=== PATIENT | male | born 1940 | race Caucasian/White ===

== ENCOUNTER → 2017-01-18 | Outpatient (CLI) | payer MEDICARE ==
[~2017-01-18] MED LIST: ASP81CT PO; CPR500T PO; LISI10TA PO; METF-380 PO; METR500T PO; MULT1CAP27 PO; OMEG-12 PO; SIMV40TA2 PO; SITA1TAB6 PO; VNL75T PO; magnesium PO; vitamine D PO
--- OUTSIDE RECORDS SUMMARY | 2017-01-18 14:57 | XMS REPORT | Continuity of Care Document ---
Author Author [facility] Organization [facility] Address Unknown Phone Unavailable Allergies Active Description Code Type Severity Reaction Onset Reported/Identified Relationship to Patient Clinical Status Yes Penicillins [id number] Drug Allergy Unknown N/A 11/02/2014 Medications Problems Date Dx Coded Attending Type Code Diagnosis Diagnosed By 04/17/2011 Ot 250.00 04/17/2011 Ot 272.4 04/17/2011 Ot 401.9 04/17/2011 Ot 414.01 04/17/2011 Ot 793.2 04/17/2011 Ot V17.49 04/17/2011 Ot V58.66 04/17/2011 Ot V58.69 11/30/2011 Ot 562.11 11/30/2011 Ot 789.00 10/08/2014 Ot 786.2 10/08/2014 Ot 250.00 10/08/2014 Ot 272.4 10/08/2014 Ot 401.9 10/08/2014 Ot 414.01 10/08/2014 Ot 791.9 10/08/2014 Ot V72.63 10/08/2014 Ot V72.81 10/10/2014 ABBY SCHULTZ MD Ot 787.91 11/06/2014 ABBY SCHULTZ MD Ot 562.10 11/06/2014 ABBY SCHULTZ MD Ot V16.0 11/06/2014 ABBY SCHULTZ MD Ot V76.51 11/19/2014 ABBY SCHULTZ MD Ot 787.91 11/23/2014 ABBY SCHULTZ MD Ot 562.10 11/23/2014 ABBY SCHULTZ MD Ot V16.0 11/23/2014 ABBY SCHULTZ MD Ot V76.51 01/06/2015 ABBY SCHULTZ MD Ot 787.91 03/01/2015 ABBY SCHULTZ MD Ot 562.10 03/01/2015 ABBY SCHULTZ MD Ot V16.0 03/01/2015 ABBY SCHULTZ MD Ot V76.51 Procedures Results Encounters ACCT No. Visit Date/Time Discharge Status Pt. Type Provider Facility Loc./Unit Complaint [id number] 11/02/2014 07:05:00 2013 23:59:59 CLS Outpatient ABBY SCHULTZ MD [facility] [id number] 11/01/2014 06:07:00 2013 23:59:59 CLS Outpatient ABBY SCHULTZ MD [facility] PREOP [id number] 10/09/2014 09:41:00 2013 23:59:59 CLS Outpatient ABBY SCHULTZ MD [facility] LAB [id number] 01/07/2015 00:12:00 Document Registration [id number] 11/30/2011 16:26:00 Document Registration [id number] 04/17/2011 05:32:00 Document Registration [id number] 04/16/2011 10:49:00 Document Registration [id number] 02/06/2011 11:10:00 Document Registration
--- NOTE | 2017-01-18 16:26 | Diagnostic Imaging Report ---
Indication: Left leg numbness and pain for two years. Discussion: Three views of the lumbosacral spine were obtained, no comparison. There is moderate diffuse degenerative disc disease present throughout the thoracic and lumbar spine as visualized. No compression fracture or abnormal subluxation. No significant degenerative disease within either sacroiliac joint. Soft tissues are unremarkable. Impression: 1. Moderate degenerative changes of the lumbar spine. If there is further concern for central canal or neural foraminal stenosis, recommend MRI or CT myelogram for further evaluation. Dictated by: Dictated on workstation # [id number]
== END ==
LOC: RAD 14:53
PROVIDERS: ATTEND Nurse Practitioner Family
DX: M54.16 Radiculopathy, lumbar region (principal)
CPT/HCPCS: 72100

== ENCOUNTER → 2017-02-03 | Outpatient (CLI) | payer MEDICARE ==
--- NOTE | 2017-02-03 15:34 | Diagnostic Imaging Report ---
PROCEDURE: MRI lumbar spine. TECHNIQUE: Multiplanar, multisequence MRI of the lumbar spine was performed without contrast. INDICATION: Back pain. History of old injury. FINDINGS: There is satisfactory alignment of the lumbar spine. There is straightening of the thoracolumbar junction and upper lumbar spine curvature. No spondylolisthesis. The vertebral body heights are preserved. There is significant disc height loss at L2/3 level with associated endplate edema around this disc. No other significant bone marrow signal abnormality is seen. There is disc desiccation and mild disc height loss at all other levels. The cauda equina and conus medullaris appear grossly unremarkable. The conus terminates at the L1 level. T12/L1: There is no disc herniation, and no spinal canal or foramina stenosis. Mild facet hypertrophy is seen. L1/2: There is a mild disc bulge and mild facet hypertrophy. There is no central canal or lateral recess stenosis. No foraminal narrowing. L2/3: There is a diffuse disc bulge and minimal central canal stenosis reducing the AP dimension of the canal to 9.8 mm. There is reduced AP dimension of the canal along the right side of the spinal canal from combination of the disc more prominent on the right side and mild to moderate facet arthropathy also more prominent on the right. There is moderate right lateral recess stenosis and minimal left lateral recess stenosis. The foramina demonstrate mild stenosis on the left and moderate to severe stenosis on the right side. There is also extraforaminal component of the disc on the right side abutting the exiting right L2 spinal nerve. L3/4: There is diffuse disc bulge and mild to moderate facet arthropathy. No central canal or lateral recess stenosis of significance. There is bilateral foraminal stenosis mild to moderate on the left and mild on the right side. L4/5: There is a diffuse disc bulge asymmetric to the left and bilateral moderate facet arthropathy. No central canal stenosis. There is bilateral lateral recess stenosis of moderate degree bilaterally, worse on the left side abutting the descending L5 nerve roots. The foramina demonstrate bilateral moderate stenosis. The far lateral left side of the disc herniation appears to encroach upon the extraforaminal portion of the left L4 spinal nerve. L5/S1: There is a minimal disc bulge and mild facet hypertrophy. No central canal stenosis. There is a mild to moderate lateral recess stenosis on the right side abutting the descending right S1 nerve root. No significant left lateral recess stenosis. The foramina demonstrate mild stenosis only on the right side. IMPRESSION: Multilevel disc and facet degenerative changes with multilevel lateral recess and foraminal stenosis. There is also far lateral disc herniations abutting the exiting corresponding spinal nerves on the left side at L4/5 and on the right side L2/3. Dictated by: Dictated on workstation # [id number]
== END ==
LOC: RAD 13:50
PROVIDERS: ATTEND Nurse Practitioner Family
DX: M51.36 Other intervertebral disc degeneration, lumbar region (principal); M51.26 Other intervertebral disc displacement, lumbar region; M48.06 Spinal stenosis, lumbar region
CPT/HCPCS: 72148

== ENCOUNTER 2019-01-10 13:18 | Outpatient (RCR) | payer MEDICARE, BC ==
[2019-03-07] MEDS ORDERED: SIMV40TA4 PO (14:17)
[2019-03-07] MEDS ORDERED: ASPI-999 PO (14:17)
[2019-03-07] MEDS ORDERED: LIRA0.6P SQ (14:17)
[2019-03-07] MEDS ORDERED: LISI10TA2 PO (14:17)
[2019-03-07] MEDS ORDERED: DAPA1TAB3 PO (14:17)
[2019-03-07] MEDS ORDERED: GABA-486 PO (14:17)
== END 2019-04-10 | disposition home or self-care (01) ==
LOC: LAB 13:18
PROVIDERS: ATTEND Nurse Practitioner Family
DX: R19.7 Diarrhea, unspecified (principal)
CPT/HCPCS: 82274; 87015; 87045; 87046; 87106; 87205; 87324; 87328; 87329; 87449; 87899

== ENCOUNTER 2019-03-07 07:06 | Outpatient (CLI) | payer MEDICARE, BC ==
[~2019-03-07] VITALS: Ht 185.4 cm; Wt 97.5 kg
[2019-03-07] MEDS ORDERED: ASPI-999 PO (14:17)
[2019-03-07] MEDS ORDERED: SIMV40TA4 PO (14:17)
[2019-03-07] MEDS ORDERED: LIRA0.6P SQ (14:17)
[2019-03-07] MEDS ORDERED: DAPA1TAB3 PO (14:17)
[2019-03-07] MEDS ORDERED: GABA-486 PO (14:17)
[2019-03-07] MEDS ORDERED: LISI10TA2 PO (14:17)
== END 2019-03-07 14:49 | disposition home or self-care (01) ==
LOC: PREOP 07:06
PROVIDERS: ATTEND Internal Medicine
DX: Z01.818 Encounter for other preprocedural examination (principal)

== ENCOUNTER 2019-03-10 07:33 | Day surgery (SDC) | payer MEDICARE, BC ==
--- NOTE | 2019-03-07 05:36 | HISTORY AND PHYSICAL ---
DATE OF SERVICE: COLONOSCOPY HISTORY AND PHYSICAL HISTORY OF PRESENT ILLNESS: The patient is a 78-year-old white male, who reports having a 3 month history of diarrhea, having 4 to 5 loose stools per day. He has not noted any blood and has had no abdominal pain. He initially thought that it might have been associated with the switch from the Victoza to Ozempic, but in switching back, his diarrhea has persisted. We had stopped the metformin and resumed it again as it did not seem to make any difference either. His weight has been stable and he denies any associated abdominal pain. He does have a past history of diverticular disease and it has been over 5 years since his last colonoscopy. PAST MEDICAL HISTORY: Significant for longstanding type 2 diabetes mellitus and hypertension that have been under reasonable control. He underwent cardiac catheterization in 2010, which revealed no significant blockage. FURTHER MEDICAL HISTORY: He has had no other medication change. There is no travel history and he has had no night sweats, chills or fever. PHYSICAL EXAMINATION: GENERAL: Reveals a white male, who did not appear to be in acute distress. VITAL SIGNS: Weight 216 pounds, blood pressure 116/70, heart rate 72 and regular. HEENT: Unremarkable. Sclerae nonicteric. CHEST: Clear to auscultation. CARDIOVASCULAR: Revealed a regular rate and rhythm without murmur, S3 or S4. ABDOMEN: Soft, supple without mass, organomegaly or tenderness. No bruits are noted. Bowel sounds are positive and unremarkable in all four quadrants. EXTREMITIES: Reveal no cyanosis, clubbing or edema. ASSESSMENT AND PLAN: 1. For further evaluation of diarrhea, the patient is set up for diagnostic colonoscopy as this has been going on for at least 3 months. 2. Type 2 diabetes mellitus. Continue current medical regimen and follow up in 6 weeks. Prep instructions were given and the questions were answered. Twenty minutes of face to face care time was spent with another 10 minutes of staff time in setting up the procedure and going over instructions. Job ID: [id number] DocumentID: [id number] Dictated Date: 03/02/2019 16:37:52 Consultant Dietitian Date: 03/02/2019 17:03:06 Dictated By: ABBY SCHULTZ MD [facility]
[~2019-03-10] VITALS: Ht 185.4 cm; Wt 97.5 kg
[~2019-03-10 07:33] MED LIST changes: +ASPI-999 PO; +DAPA1TAB3 PO; +GABA-486 PO; +LIRA0.6P SQ; +LISI10TA2 PO; +SIMV40TA4 PO
[2019-03-10] MEDS ORDERED: D5 LR IV SOLUTION 1,000 ML IV ONE (07:34)
[2019-03-10] MEDS ORDERED: D5 LR IV SOLUTION 1,000 ML IV STA (07:42)
[2019-03-10] MEDS ORDERED: MIDAZOLAM 2 MG/2 ML (VERSED) VIAL IVP ONE (07:45)
[2019-03-10] MEDS ORDERED: fentaNYL INJECTION 100 MCG/2 ML AMP IVP ONE (07:45)
[2019-03-10] MEDS ORDERED: LIDOCAINE JELLY 2% 6 ML SYRINGE MM PRN (07:45)
[2019-03-10 07:54] VITALS: BP 126/87
[2019-03-10] MEDS ORDERED: fentaNYL INJECTION 100 MCG/2 ML AMP ONE (08:20)
[2019-03-10] MEDS ORDERED: MIDAZOLAM 2 MG/2 ML (VERSED) VIAL ONE ×2 (08:20→08:21)
[2019-03-10] MEDS ORDERED: LIDOCAINE JELLY 2% 6 ML SYRINGE ONE (08:20)
[2019-03-10 09:00] VITALS: BP 113/69
[2019-03-10 09:30] VITALS: BP 112/77
--- NOTE | 2019-03-10 09:36 | Pre-Op Note & Conscious Sedat ---
Pre-Operative Progress Note H&P Reviewed The H&P was reviewed, patient examined and no changes noted. Date H&P Reviewed: Mar 10, 2019 Time H&P Reviewed: 08:00 Conscious Sedation Pre-Proced ASA Score 2 For ASA 3 and 4: Consider anesthesia and medical clearance. Also, for patients with a history of failed moderate sedation consider anesthesia. Airway Lungs Heart ASA score ASA 1: a normal healthy patient ASA 2: a patient with a mild systemic disease (mid diabetes, controlled hypertension, obesity ASA 3: a patient with a severe systemic disease that limits activity (angina , COPD, prior Myocardial infarction) ASA 4: a patient with an incapacitating disease that is a constant threat to life (CHF, renal failure) ASA 5: a moribund patient not expected to survive 24 hrs. (ruptured aneurysm) ASA 6: a declared brain- patient whose organs are being harvested. For emergent operations, add the letter E after the classification Mallampati Classification Grade 2 Sedation Plan Analgesia, Amnesia, Plan communicated to team members, Discussed options with patient/fam, Discussed risks with patient/fam The patient is an appropriate candidate to undergo the planned procedure, sedation, and anesthesia. The patient immediately re-assessed prior to indication. ABBY SCHULTZ MD Mar 10, 2019 09:36
[2019-03-10 10:00] VITALS: BP 104/72
[2019-03-10 10:25] VITALS: BP 104/72
--- NOTE | 2019-03-10 11:50 | OPERATIVE REPORT ---
DATE OF SERVICE: 03/10/2019 COLONOSCOPY SUMMARY INDICATION FOR THE PROCEDURE: Diagnostic colonoscopy due to history of diarrhea. DESCRIPTION OF PROCEDURE: The patient was placed in the left lateral decubitus position. Prior to undergoing colonoscopy, digital rectal evaluation was performed. Anal sphincter tone was normal and the perianal reflexes intact. No abnormalities, no additional inspection of the anal canal or distal rectal vault other than findings compatible with mild benign prostatic hypertrophy. No evidence for nodularity was noted with uniform consistency to digital inspection. The colonoscope was then inserted into the rectum and under direct visualization advanced to the cecum. The cecum was identified by identification of the ileocecal valve and cecal strap. Photographic documentation was obtained. Careful inspection was made as the colonoscope was withdrawn. Terminal ileum was also intubated and distal 5-10 cm of terminal ileum were inspected. FINDINGS: There were no evidence for internal or external hemorrhoids and the rectum was unremarkable. Present in the mid and proximal sigmoid diverticulum and to a lesser extent descending colon were moderate number of small to medium size diverticulum without evidence for diverticulitis. The transverse colon, hepatic flexure, ascending colon and cecum were unremarkable as well as the inspected 5-10 cm of distal terminal ileum. Considering diarrhea, a biopsy was obtained from the rectum to evaluate for microscopic colitis. ASSESSMENT AND PLAN: Moderate diverticular disease noted in the sigmoid and descending colon was present without evidence for diverticulitis. This was an otherwise normal colonoscopy to the cecum. If there are no evidence for microscopic colitis, we will likely empirically treat the patient for small bowel bacterial overgrowth considering his history and today's findings. Job ID: [id number] DocumentID: [id number] Dictated Date: 03/10/2019 10:18:39 Machine Attendant Date: 03/10/2019 11:50:22 Dictated By: ABBY SCHULTZ MD
== END 2019-03-10 10:25 | disposition home or self-care (01) ==
LOC: ENDO 07:33
PROVIDERS: ATTEND Internal Medicine
DX: R19.7 Diarrhea, unspecified (principal); K57.30 Diverticulosis of large intestine without perforation or abscess without bleeding; E11.9 Type 2 diabetes mellitus without complications; I10 Essential (primary) hypertension; Z79.84 Long term (current) use of oral hypoglycemic drugs; Z79.899 Other long term (current) drug therapy
CPT/HCPCS: 88305

== ENCOUNTER → 2020-08-19 | Outpatient (CLI) | payer BC, MEDICARE ==
[~2020-08-19] MED LIST changes: +SIMV40TA25 PO; -SIMV40TA4 PO
--- NOTE | 2020-08-19 16:39 | Diagnostic Imaging Report ---
EXAMINATION: Left upper extremity MRI from 08/19/2020. TECHNIQUE: Multiplanar, multisequence non contrast-enhanced MRI of the left upper extremity was accomplished. INDICATION: Fall, injury to left shoulder. FINDINGS: The subscapularis tendon is intact. The long head of the biceps tendon lies in the bicipital groove and is also intact. The supraspinatus tendon contains a full-thickness tear anteriorly towards the footprint without significant retraction. A focal gap of approximately a centimeter is noted. More posteriorly, there is abnormal signal intensity within the intrasubstance of the infraspinatus tendon, consistent with a partial tear. Muscle volume demonstrates atrophy of the supraspinatus muscle with remaining musculature fairly well maintained. The visualized axilla is unremarkable. There is narrowing and spurring at the acromioclavicular joint. The remaining osseous structures demonstrate degenerative change at the greater tuberosity. The labrum is not well evaluated without contrast. Some abnormal signal intensity is seen throughout the superior labrum which most likely represents degenerative signal. A discrete tear is difficult to completely exclude without contrast. IMPRESSION: 1. Full-thickness tear of the anterior supraspinatus tendon with the remaining rotator cuff, as above. 2. Degenerative signal throughout the superior labrum with a discrete tear not seen but difficult to exclude without contrast. Other findings, as noted. Dictated by: Dictated on workstation # [id number]
== END ==
LOC: RAD 13:15
PROVIDERS: ATTEND Orthopaedic Surgery
DX: M75.112 Incomplete rotator cuff tear or rupture of left shoulder, not specified as traumatic (principal); M19.012 Primary osteoarthritis, left shoulder
CPT/HCPCS: 73221

== ENCOUNTER → 2021-07-04 | Outpatient (CLI) | payer MEDICARE ==
[~2021-07-04] MED LIST changes: -LISI10TA2 PO; +LISI10TA25 PO
--- NOTE | 2021-07-04 09:26 | Diagnostic Imaging Report ---
PROCEDURE: US Gallbladder. TECHNIQUE: Multiple real-time grayscale images were obtained over the right upper quadrant in various projections. INDICATION: Right upper quadrant abdominal pain COMPARISON: None. FINDINGS: There is a 2 cm solid hyperechoic mass in the left hepatic lobe of the liver which was partially visualized on the 2012 examination. This has the appearance of a benign hemangioma. Otherwise, the liver is unremarkable. There is significant bowel gas obscuring detail of the liver and gallbladder. The pancreas, IVC and aorta are poorly visualized. Exophytic renal cyst measuring 3 cm is seen adjacent to the right kidney. There was no hydronephrosis. There is no intrahepatic biliary duct dilatation. The common bile duct is not visualized. There is some questionable debris within the gallbladder. No obvious gallstone or cholecystitis is seen. There is no ascites. IMPRESSION: 1. Limited examination due to bowel gas. 2. Benign-appearing left hepatic lobe liver hemangioma. 3. Likely gallbladder sludge without obvious cholelithiasis or cholecystitis. 4. Due to limitations of the examination, CT with contrast may be obtained to evaluate the pancreas and unseen portions of the liver. Dictated by: Dictated on workstation # [id number]
== END ==
LOC: RAD 07:26
PROVIDERS: ATTEND Internal Medicine
DX: D18.09 Hemangioma of other sites (principal); E11.9 Type 2 diabetes mellitus without complications
CPT/HCPCS: 76705

== ENCOUNTER → 2021-10-08 | Outpatient (CLI) | payer MEDICARE ==
[2021-10-08 11:30] VITALS: BP 126/81
--- NOTE | 2021-10-08 12:25 | Cardiology Stress Test Report ---
Stress Test Report Date of Procedure/Referring: Date of Procedure: Oct 08, 2021 PCP Loren Anderson MD Admitting Physician José Ovalle MD Indications: HTN Baseline Heart Rate: 78 Baseline Blood Pressure: Blood Pressure Systolic: 126 Blood Pressure Diastolic: 81 Baseline EKG: Baseline EKG: NSR Summary/Conclusion: Summary: In summary, the patient started exercising with a baseline heart rate, blood pressure and EKG mentioned above Patient was able to exercise for a total of 9 minutes on Rancho protocol, METs 10.5 Maximum heart rate 124 Maximum blood pressure 171/77 Stress EKG, Minimal nondiagnostic changes Recovery EKG , Return to baseline Conclusion: 1. Good exercise tolerance for a total of 9 minutes on Rancho protocol, 10.5 METs, achieving 87 percent of maximum expected heart rate 2. Minimal nondiagnostic EKG changes with exercise returned to baseline during recovery 3. No arrhythmia was noted LOREN ANDERSON MD Oct 08, 2021 12:24
== END ==
LOC: CARD 10:08
PROVIDERS: ATTEND Internal Medicine Cardiovascular Disease
DX: I11.9 Hypertensive heart disease without heart failure (principal); I34.0 Nonrheumatic mitral (valve) insufficiency
CPT/HCPCS: 93017; 93306